=== PATIENT | female | born 1985 | race African-American/Black ===

== ENCOUNTER 2017-02-27 09:24 | Inpatient (IN) | payer OTHER ==
[2017-02-27] VITALS (26 sets, daily range): BP systolic 101–141; BP diastolic 59–97
[~2017-02-27] VITALS: Ht 165.1 cm; Wt 81.8 kg
[2017-02-27] MEDS ORDERED: LACTATED RINGER'S 1000 ML IV STA (10:06)
[2017-02-27] MEDS ORDERED: PRENTAB9 PO (10:20)
[2017-02-27 10:45] LABS: MEAN CORPUSCULAR HEMOGLOBIN 31.7 pg (27.0-33.0); MEAN CORPUSCULAR HGB CONC 33.8 g/dl (32.0-36.5); MEAN CORPUSCULAR VOLUME 93.9 fl (80.0-96.0); RED CELL DISTRIBUTION WIDTH 15.2 % (11.5-14.5); WHITE BLOOD COUNT 7.3 10^3/uL (4.0-10.0)
[2017-02-27] MEDS ORDERED: PROMETHAZINE INJ 25 MG/ML VIAL (J2550) IV ONE (14:30)
[2017-02-27] MEDS ORDERED: BUTORPHANOL 2 MG/ML INJ (J0595) IV ONE (14:30)
[2017-02-27] MEDS ORDERED: FENTANYL 2MCG/ML ROPIVACAINE 0.2% IN 0.9% NACL 200ML IVBAG As Ordered ONE (19:09)
[2017-02-27] MEDS ORDERED: diphenhydrAMINE INJ 50MG/ML VIAL (J1200) IV PRN (19:52)
[2017-02-27] MEDS ORDERED: EPIDURAL/PCA KEYS XX PRN (19:52)
[2017-02-27] MEDS ORDERED: NALOXONE INJ 0.4 MG/1 ML VIAL (J2310) IV PRN (19:52)
[2017-02-27] MEDS ORDERED: REFRIGERATOR IV KEYS XX PRN (19:52)
[2017-02-27] MEDS ORDERED: FENTANYL/ROPIVACAINE/NACL BAG 200 ML EPIDURAL SCH (19:52)
[2017-02-27] MEDS ORDERED: EPIDURAL COMMENT XX SCH (19:52)
[2017-02-27] MEDS ORDERED: ePHEDrine SULFATE 25 MG/5 ML(5MG/ML) SYRINGE IV PRN (19:52)
[2017-02-27] MEDS ORDERED: ONDANSETRON 4MG/2ML VIAL (J2405) IV PRN (19:52)
[2017-02-27] MEDS ORDERED: LACTATED RINGER'S 1000 ML IV PRN (19:52)
[2017-02-27] MEDS ORDERED: LIDOCAINE 1% MDV INJ 50 ML VIAL As Ordered ONE (22:30)
[2017-02-27] MEDS ORDERED: OXYTOCIN INJ 10 UNITS/ML VIAL (J2590) As Ordered ONE (22:30)
[2017-02-27] MEDS ORDERED: OXYTOCIN 30 UNITS IN 0.9% NaCl 500ML IV BAG (J2590) As Ordered ONE (23:45)
[2017-02-27] MEDS ORDERED: OXYTOCIN DRIP 30 UNITS in APPROPRIATE DILUENT 1 EA IV SCH (23:55)
[2017-02-28] MEDS ORDERED: DIBUCAINE 1% OINTMENT 30GM TOP PRN
[2017-02-28] MEDS ORDERED: MEASLES,MUMPS,RUBELLA VACCINE INJ (MMR-II) (90707) SC SCH
[2017-02-28] MEDS ORDERED: ACETAMINOPHEN 500 MG TAB PO PRN
[2017-02-28] MEDS ORDERED: RHOGAM 300 MCG (1500 IU) INJ (J2790) IM SCH
[2017-02-28] MEDS ORDERED: METHYLERGONOVINE MALEATE 0.2 MG/ML VIAL (J2210) IM PRN
[2017-02-28] MEDS ORDERED: PROMETHAZINE 25 MG TAB PO PRN
[2017-02-28] MEDS ORDERED: ONDANSETRON 4MG/2ML VIAL (J2405) IV PRN
[2017-02-28 00:15] VITALS: BP 122/63
[2017-02-28 00:26] VITALS: BP 156/119
[2017-02-28 00:28] VITALS: BP 117/67
[2017-02-28 01:52] VITALS: BP 114/69
[2017-02-28] MEDS: IBUPROFEN 800 MG TAB PO PRN ×2 (04:44→16:08)
[2017-02-28 05:55] VITALS: BP 120/71
[2017-02-28] MEDS: PRENATAL VITAMINS CHEWABLE TABLET PO SCH (07:54)
[2017-02-28] MEDS: DOCUSATE SODIUM 100 MG CAP PO SCH ×2 (07:54→20:35)
[2017-02-28 18:19] VITALS: BP 103/59
[2017-03-01] MEDS: IBUPROFEN 800 MG TAB PO PRN (00:01)
[2017-03-01 06:00] VITALS: BP 104/65
[2017-03-01] MEDS: DOCUSATE SODIUM 100 MG CAP PO SCH (09:17)
[2017-03-01] MEDS: PRENATAL VITAMINS CHEWABLE TABLET PO SCH (09:17)
[2017-03-01] MEDS ORDERED: COLA100C5 PO (11:26)
[2017-03-01] MEDS ORDERED: ACET50TA PO (11:26)
[2017-03-01] MEDS ORDERED: IBUP-1022 PO (11:27)
== END 2017-03-01 11:40 | disposition home or self-care (01) | DRG 775 ==
LOC: M LDO 09:24 → M LDI 10:06 → M OBS 02-28 01:39
PROVIDERS: ADMIT Obstetrics & Gynecology; ATTEND Obstetrics & Gynecology
PROC: 10E0XZZ Delivery of Products of Conception, External Approach (ICD-10-PCS; principal; 2017-02-28)
PROC: 0HQ9XZZ Repair Perineum Skin, External Approach (ICD-10-PCS; 2017-02-28)
DX: O70.0 First degree perineal laceration during delivery (principal); Z37.0 Single live birth; Z3A.39 39 weeks gestation of pregnancy